=== PATIENT | male | born 1975 | race Caucasian/White ===

== ENCOUNTER 2018-11-08 16:00 | Inpatient (IN) | payer OTHER ==
[~2018-11-08] VITALS: Ht 188 cm; Wt 93.0 kg
--- NOTE | 2018-11-08 16:17 | NUR ---
ED Nurse Note: Pt came into the Er w/ complaints of abdominal pain since 0800 this morning. Pt is rating the pain a 9/10. Non radiating. Pt stated that he is nauseous and 1 episode of vomiting since this morning. Pt denies having diarrhea. Pt stated that he had bowel obstruction 20 years ago. Pt is A + O x4. Ambulatory. Skin warm to touch.
[2018-11-08 16:19] VITALS: BP 135/92
[2018-11-08] MEDS ORDERED: Metoclopramide 10mg/2ml Inj IVP ONE (16:30)
[2018-11-08] MEDS ORDERED: Isovue-300 100ml vial INJ PRN (16:30)
[2018-11-08 16:42] LABS: HEMATOCRIT 44.9 % (42.0-52.0); HEMOGLOBIN 14.4 G/DL (14.2-18.0); MEAN CORPUSCULAR VOLUME 77 FL (80-99); PLATELET COUNT 281 K/UL (150-450); RED BLOOD COUNT 5.81 M/UL (4.70-6.10); RED CELL DISTRIBUTION WIDTH 14.7 % (11.6-14.8); WHITE BLOOD COUNT 13.3 K/UL (4.8-10.8)
[2018-11-08 16:57] LABS: ANION GAP 10 mmol/L (5-15); BLOOD UREA NITROGEN 14 mg/dL (7-18); CALCIUM 8.6 MG/DL (8.5-10.1); CARBON DIOXIDE 26 MMOL/L (21-32); CHLORIDE 100 MMOL/L (98-107); CREATININE 1.4 MG/DL (0.55-1.30); SODIUM 136 MMOL/L (136-145)
[2018-11-08 17:06] LABS: ALANINE AMINOTRANSFERASE 124 U/L (12-78); ALBUMIN 3.9 G/DL (3.4-5.0); ALKALINE PHOSPHATASE 43 U/L (46-116); BILIRUBIN,TOTAL 0.5 MG/DL (0.2-1.0); CREATINE KINASE 776 U/L (26-308)
[2018-11-08 17:20] LABS: ASPARTATE AMINO TRANSFERASE 77 U/L (15-37)
[2018-11-08 17:23] LABS: APPEARANCE,URINE CLEAR; BILIRUBIN, URINE NEGATIVE (NEGATIVE); GLUCOSE, URINE (UA) NEGATIVE (NEGATIVE); KETONES,URINE 2+ (NEGATIVE); LEUKOCYTE ESTERASE ,URINE NEGATIVE (NEGATIVE); NITRITE,URINE NEGATIVE (NEGATIVE); PH,URINE 5 (4.5-8.0); PROTEIN,URINE 2+ (NEGATIVE); UROBILINOGEN,URINE NORMAL MG/DL (0.0-1.0)
[2018-11-08 17:28] LABS: COLOR,URINE YELLOW
--- NOTE | 2018-11-08 17:29 | NUR ---
ED Nurse Note: Pt went down to CT.
--- NOTE | 2018-11-08 17:49 | NUR ---
ED Nurse Note: Pt back from CT.
--- NOTE | 2018-11-08 18:03 | Emergency Room Report ---
History of Present Illness General Chief Complaint: Abdominal Pain Source: Patient Present Illness HPI This patient states that he woke up this morning with abdominal pain, nausea and vomiting. He states that 20 years ago he had a small bowel obstruction and this felt exactly the same way. He states that he hasn't had a bowel movement today. He states that he did try to drink this morning but vomited it back up. He has not tried to drink anything since. He denies fever or chills. He denies chest pain or shortness of breath. He denies recent illness. He has no other complaints. Allergies: Coded Allergies: No Known Allergies (Unverified , 11/08/18) Patient History Past Medical History: none, see triage record Past Surgical History: other - Open lap for SBOx20 years ago. Social History: Reports: alcohol use - occassional, drug use - THC; Denies: smoking Reviewed Nursing Documentation: PMH: Agreed; PSxH: Agreed Nursing Documentation-PMH Past Medical History: No Stated History Review of Systems All Other Systems: negative except mentioned in HPI Physical Exam Vital Signs Date Time Temp Pulse Resp B/P (MAP) Pulse Ox O2 Delivery O2 Flow Rate FiO2 11/08/18 16:03 97.5 73 18 157/95 100 Room Air 11/08/18 16:19 100 Sp02 EP Interpretation: reviewed, normal General Appearance: no apparent distress, alert, GCS 15, non-toxic Head: normocephalic, atraumatic Eyes: bilateral eye normal inspection, bilateral eye PERRL ENT: hearing grossly normal, normal pharynx, no angioedema, normal voice Neck: full range of motion, supple/symm/no masses Respiratory: chest non-tender, lungs clear, normal breath sounds, no respiratory distress, no retraction, no accessory muscle use, speaking full sentences Cardiovascular #1: regular rate, rhythm, no edema Gastrointestinal: normal bowel sounds, soft, non-distended, no guarding, no rebound, tenderness - TTP darren-umbilical and supra-pubic Rectal: deferred Musculoskeletal: back normal, gait/station normal, normal range of motion, non- tender Neurologic: alert, oriented x3, responsive, motor strength/tone normal, sensory intact, speech normal Psychiatric: judgement/insight normal, memory normal, mood/affect normal, no suicidal/homicidal ideation Skin: normal color, no rash, warm/dry, well hydrated Medical Decision Making Diagnostic Impression: Primary Impression: Partial small bowel obstruction ER Course This patient is found to have findings on CT that is concerning for partial small bowel obstruction versus gastrointestinal stasis. Given the patient's history of surgery at this location and a history of a small bowel instruction, I'm concerned that this could become a full small bowel instruction. An NG tube was placed to decompress the bowel and the patient is admitted for further evaluation and treatment by general surgery. Laboratory Tests Test 11/08/18 16:25 11/08/18 17:05 White Blood Count 13.3 K/UL (4.8-10.8) H Red Blood Count 5.81 M/UL (4.70-6.10) Hemoglobin 14.4 G/DL (14.2-18.0) Hematocrit 44.9 % (42.0-52.0) Mean Corpuscular Volume 77 FL (80-99) L Mean Corpuscular Hemoglobin 24.7 PG (27.0-31.0) L Mean Corpuscular Hemoglobin Concent 32.0 G/DL (32.0-36.0) Red Cell Distribution Width 14.7 % (11.6-14.8) Platelet Count 281 K/UL (150-450) Mean Platelet Volume 6.5 FL (6.5-10.1) Neutrophils (%) (Auto) % (45.0-75.0) Lymphocytes (%) (Auto) % (20.0-45.0) Monocytes (%) (Auto) % (1.0-10.0) Eosinophils (%) (Auto) % (0.0-3.0) Basophils (%) (Auto) % (0.0-2.0) Neutrophils % (Manual) Pending Lymphocytes % (Manual) Pending Platelet Estimate Pending Platelet Morphology Pending Prothrombin Time 10.8 SEC (9.30-11.50) Prothrombin Time INR 1.0 (0.9-1.1) PTT 24 SEC (23-33) Sodium Level 136 MMOL/L (136-145) Potassium Level 4.0 MMOL/L (3.5-5.1) Chloride Level 100 MMOL/L (98-107) Carbon Dioxide Level 26 MMOL/L (21-32) Anion Gap 10 mmol/L (5-15) Blood Urea Nitrogen 14 mg/dL (7-18) Creatinine 1.4 MG/DL (0.55-1.30) H Estimate Glomerular Filtration Rate 55.6 mL/min (>60) Glucose Level 115 MG/DL (74-106) H Calcium Level 8.6 MG/DL (8.5-10.1) Total Bilirubin 0.5 MG/DL (0.2-1.0) Aspartate Amino Transferase (AST) 77 U/L (15-37) H Alanine Aminotransferase (ALT) 124 U/L (12-78) H Alkaline Phosphatase 43 U/L (46-116) L Total Creatine Kinase 776 U/L (26-308) H Total Protein 7.9 G/DL (6.4-8.2) Albumin 3.9 G/DL (3.4-5.0) Globulin 4.0 g/dL Albumin/Globulin Ratio 1.0 (1.0-2.7) Lipase 390 U/L (73-393) Urine Color Yellow Urine Appearance Clear Urine pH 5 (4.5-8.0) Urine Specific [place] 1.030 (1.005-1.035) Urine Protein 2+ (NEGATIVE) H Urine Glucose (UA) Negative (NEGATIVE) Urine Ketones 2+ (NEGATIVE) H Urine Blood 2+ (NEGATIVE) H Urine Nitrite Negative (NEGATIVE) Urine Bilirubin Negative (NEGATIVE) Urine Urobilinogen Normal MG/DL (0.0-1.0) Urine Leukocyte Esterase Negative (NEGATIVE) Urine RBC 5-10 /HPF (0 - 0) H Urine WBC 0-2 /HPF (0 - 0) Urine Squamous Epithelial Cells Occasional /LPF Urine Bacteria Few /HPF (NONE) Urine Opiates Screen Negative (NEGATIVE) Urine Barbiturates Screen Negative (NEGATIVE) Phencyclidine (PCP) Screen Negative (NEGATIVE) Urine Amphetamines Screen Negative (NEGATIVE) Urine Benzodiazepines Screen Negative (NEGATIVE) Urine Cocaine Screen Negative (NEGATIVE) Urine Marijuana (THC) Screen Positive (NEGATIVE) H CT/MRI/US Diagnostic Results CT/MRI/US Diagnostic Results : Imaging Test Ordered: CT abd/pelvis Impression Previous bowel/colonic resection. Mural thickening involving the distal small bowel segment near the anastomosis sutures. Mildly distended and fecalized small bowel loops suggesting stasis or partial obstruction. Small amounts of fluid and appears show cavity. Appendix not identified. Last Vital Signs Date Time Temp Pulse Resp B/P (MAP) Pulse Ox O2 Delivery O2 Flow Rate FiO2 11/08/18 16:19 71 12 Room Air 100 11/08/18 16:19 97.6 135/92 100 Status: improved Disposition: ADMITTED INPATIENT Condition: Serious Scripts No Active Prescriptions or Reported Meds Jennifer Buckner DO Nov 08, 2018 18:03
[2018-11-08 18:16] VITALS: BP 161/91
--- NOTE | 2018-11-08 19:12 | NUR ---
HAND-OFF: Report given to ULISSES Smith.
--- NOTE | 2018-11-08 19:15 | NUR ---
ED Nurse Note: Recieved report from am nurse to resume care, pt in bed awake, alert and oriented x 4, pt here with c/o abdominal pain and being admitted for partial bowel obstructions, pt in bed on cardiac monitoirng, has patent iv line, spouse at bedside conversing, pt has pain at 7/10 but declines need for meds, will resume care as ordered and closely monitor.
[2018-11-08 20:00] VITALS: BP 149/82
[2018-11-08] MEDS ORDERED: Morphine Sulfate 4mg/ml Inj (IV USE ONLY) IVP ONE (21:30)
--- NOTE | 2018-11-08 21:35 | NUR ---
ED Nurse Note: Pt continues to rest in bed, awake and alert, pt decided to stay for admission, pt will recieve ngt and has room for admit, pt asking for pain meds stating pain level is increasing, pt medicated with morphine, meds effective, will continue to closely monitor and prepare for admission.
[2018-11-08] MEDS ORDERED: Metoclopramide 10mg/2ml Inj IVP PRN (21:45)
[2018-11-08] MEDS ORDERED: Mylanta II UD 30ml ORAL PRN (21:45)
[2018-11-08] MEDS ORDERED: Promethazine HCl 25 MG in NS 55 ML IV PRN (21:45)
[2018-11-08] MEDS ORDERED: Nitroglycerin Subl 0.4mg tab SL PRN (21:45)
[2018-11-08] MEDS ORDERED: Promethazine HCl 12.5 MG in NS 55 ML IV PRN (21:45)
[2018-11-08] MEDS ORDERED: Morphine Sulfate 2mg/ml Inj(IV/IM USE ONLY) IVP PRN (21:45)
[2018-11-08] MEDS ORDERED: Miralax 17gm pkt ORAL PRN (21:45)
[2018-11-08] MEDS ORDERED: LORazepam Inj 2mg/ml 1ml IV PRN (21:45)
[2018-11-08 22:00] VITALS: BP 139/81
--- NOTE | 2018-11-08 22:15 | NUR ---
ED Nurse Note: #16 [place] sump placed; checked with auscultation. Pt tolerated fairly well, relatively.
--- NOTE | 2018-11-08 22:35 | NUR ---
ED Nurse Note: Pt being taken to floor bed for admission, pt is in bed awake, alert and oriented x 4, denies pain, ngt in place intact in left nare, pt iv site intact also, v/s stable, no sob or labored breathing, pt spouse present, belongings list completed, pt being taken to unit via gurney with er-tech, nad noted during pt transport.
--- NOTE | 2018-11-08 23:00 | NUR ---
NURSE NOTES: Received patient from ER, awake, alert, oriented, spouse by bedside. NGT to low cont suction, patient is NPO except meds and ice chips. No acute distress noted, call light is within reach, bed is in low position, locked and alarm is on. Will continue to monitor for comfort.
[2018-11-08] MEDS: D5 1/2NS 1,000 ML IV SCH (23:21)
[2018-11-09] VITALS: BP 146/85
[2018-11-09 04:00] VITALS: BP 142/79
[2018-11-09 06:40] LABS: BASOPHILS % (AUTO) 0.7 % (0.0-2.0); EOSINOPHILS % (AUTO) 0.6 % (0.0-3.0); HEMATOCRIT 45.3 % (42.0-52.0); HEMOGLOBIN 14.4 G/DL (14.2-18.0); LYMPHOCYTES % (AUTO) 16.4 % (20.0-45.0); MEAN CORPUSCULAR VOLUME 78 FL (80-99); MONOCYTES % (AUTO) 7.2 % (1.0-10.0); NEUTROPHILS % (AUTO) 75.1 % (45.0-75.0); PLATELET COUNT 307 K/UL (150-450); RED BLOOD COUNT 5.83 M/UL (4.70-6.10); RED CELL DISTRIBUTION WIDTH 14.9 % (11.6-14.8); WHITE BLOOD COUNT 11.5 K/UL (4.8-10.8)
[2018-11-09 06:51] LABS: ALANINE AMINOTRANSFERASE 91 U/L (12-78); ALBUMIN/GLOBULIN RATIO 0.9 (1.0-2.7); ALKALINE PHOSPHATASE 36 U/L (46-116); AMYLASE 98 U/L (25-115); ANION GAP 9 mmol/L (5-15); ASPARTATE AMINO TRANSFERASE 49 U/L (15-37); BILIRUBIN,TOTAL 0.8 MG/DL (0.2-1.0); BLOOD UREA NITROGEN 13 mg/dL (7-18); CALCIUM 7.3 MG/DL (8.5-10.1); CARBON DIOXIDE 25 MMOL/L (21-32); CHLORIDE 102 MMOL/L (98-107); CREATININE 1.3 MG/DL (0.55-1.30); POTASSIUM 3.9 MMOL/L (3.5-5.1); SODIUM 136 MMOL/L (136-145)
--- NOTE | 2018-11-09 06:51 | NUR ---
HAND-OFF: Report given to Suleiman GTZ.
[2018-11-09 08:00] VITALS: BP 111/67
--- NOTE | 2018-11-09 08:00 | NUR ---
NURSE NOTES: Received report from Awa GTZ, pt a/a/o x4 laying in bed with no signs of distress or other issues at this time. pt has NGT in place to continues suction. pt is NPO except ice chips and meds. IV on the left FA gauge #20 running D5 1/2 NS at 75ml/hr. plan for abd Xray today. partner at bedside. call light within reach, bed in lowest position. side rales up x2. I will f/u as needed.
[2018-11-09] MEDS ORDERED: Pantoprazole Inj IV SCH (09:00)
[2018-11-09] MEDS ORDERED: Heparin 5000 units/ml inj SUBQ SCH (09:00)
--- NOTE | 2018-11-09 09:01 | NUR ---
RADIOLOGY DEPT., KUB (ABDOMEN) X-RAY COMPLETED.-P.DYE
--- NOTE | 2018-11-09 09:06 | Diagnostic Imaging Report ---
Clinical Indication: Abdominal pain, 9 out of 10 this morning. Prior history of bowel obstruction Technique: No oral contrast utilized, per emergency room physician request IV administration nonionic contrast. Venous phase spiral acquisition obtained through the abdomen and pelvis. Multiplanar reconstructions were generated. Total dose length product 950.85 mGycm. CTDIvol(s) 16.38 mGy. Dose reduction achieved using automated exposure control Comparison: none Findings: There is unusual postsurgical anatomy of the pelvis. There is an independent anastomosis into the rectum. It is unclear whether the anastomosis bowel is sigmoid or small bowel. There is marked segmental edema of the bowel proximal to the anastomosis. There is also a blind-ending segment with an end to side anastomosis attached to the distal anastomotic segment. The remainder of the distal small bowel anatomy is unclear. There are prominent fluid-filled small bowel loops in the right lower quadrant, as well as collapsed small bowel loops in the right lower quadrant. It is uncertain which bowel loops are more proximal of which are more distal. The jejunum appears unremarkable. There is a small amount of free intraperitoneal fluid. The distal esophagus, stomach, duodenum are unremarkable. The liver, gallbladder, bile ducts, pancreas, spleen, adrenals, kidneys are unremarkable. No retroperitoneal or mesenteric mass or adenopathy. No pelvic mass or adenopathy. The included lung bases are clear. Impression: Marked wall thickening of a segment of either distal small bowel or sigmoid colon, distended with colitis versus enteritis. Mixed dilated and collapsed small bowel loops in the right lower quadrant, could indicate partial small bowel obstruction, could also indicate ileus.. Free intraperitoneal fluid, likely related to the above This agrees with the preliminary interpretation provided overnight by [facility] teleradiology service. The CT scanner at [facility] is accredited by the [employer] and the scans are performed using protocols designed to limit radiation exposure to as low as reasonably achievable to attain images of sufficient resolution adequate for diagnostic evaluation.
--- NOTE | 2018-11-09 09:21 | Diagnostic Imaging Report ---
Indication: Abdominal pain, abnormal liver function tests, abnormal white blood cells Technique: Gomez-scale and duplex images of the upper abdomen were obtained. Doppler interrogation of the hepatic and pancreatic vessels Comparison: Reference made to abdomen pelvis CT 11/08/2018 Findings: Small amount of free intraperitoneal fluid is noted. Gallbladder is unremarkable, without stones, wall thickening, nor pericholecystic fluid. Sonographic Vogt's sign is negative. Common bile duct measures 5 mm in diameter. No intrahepatic biliary ductal dilatation. Liver demonstrates normal echogenicity, no focal abnormality. Portal vein and hepatic veins are patent. Pancreas is unremarkable. Spleen is unremarkable. Left kidney measures 12.6 cm in length. Right kidney measures 11.9 cm length. Both kidneys demonstrate normal echogenicity. There is no hydronephrosis. No focal abnormality . Abdominal aorta is partially obscured by bowel gas, visualized portions are non-aneurysmal . Impression: Small amount of free intraperitoneal fluid, also described on recent CT abdomen and pelvis Negative for gallstones or dilated bile ducts Note incomplete visualization of the abdominal aorta
--- NOTE | 2018-11-09 11:00 | GI Initial Consult Note ---
History of Present Illness General Date patient seen: Nov 09, 2018 Time patient seen: 10:56 Reason for Hospitalization: Abdominal Pain Referring physician: LULU MIR Reason for Consultation: Abdominal pain Present Illness HPI This patient states that he woke up this morning with abdominal pain, nausea and vomiting. He states that 20 years ago he had a small bowel obstruction and this felt exactly the same way. He states that he hasn't had a bowel movement today. He states that he did try to drink this morning but vomited it back up. He has not tried to drink anything since. He denies fever or chills. He denies chest pain or shortness of breath. He denies recent illness. He has no other complaints. GI consulted for abdominal pain. Patient seen, awake alert and oriented x4. Patient presented to the emergency room with abdominal pain. Abdominal pelvic CT was performed noted that the patient had marked wall thickening of a segment of the distal bowel which was suggested above enteritis. In addition there were mixed dilated and collapsed small bowel loops in the right lower quadrant which could have indicated a partial small bowel obstruction or ileus. The patient has history of a ulcerative colitis, status post total colectomy approximately 20 years ago. NGT currently to low intermittent suction with minimal output. The patient's abdomen is soft, nondistended, nontender. The patient reported to have multiple bowel movements this morning. Home Meds No Active Prescriptions or Reported Meds Allergies: Coded Allergies: No Known Allergies (Unverified , 11/08/18) Patient History History Provided By: Patient, Medical Record PMH Narrative Past Medical History: none, see triage record Past Surgical History: other - Open lap for SBOx20 years ago. Social History: Reports: alcohol use - occassional, drug use - THC; Denies: smoking Reviewed Nursing Documentation: PMH: Agreed; PSxH: Agreed Nursing Documentation-PM Past Medical History: No Stated History Social History: Denies: smoking, alcohol use, drug use, other Review of Systems All Other Systems: negative except mentioned in HPI Physical Exam Vital Signs Date Time Temp Pulse Resp B/P (MAP) Pulse Ox O2 Delivery O2 Flow Rate FiO2 11/08/18 16:03 97.5 73 18 157/95 100 Room Air 11/08/18 16:19 100 Sp02 EP Interpretation: reviewed, normal Labs Laboratory Tests Test 4/22/19 16:25 11/08/18 17:05 11/09/18 05:10 White Blood Count 13.3 K/UL (4.8-10.8) H 11.5 K/UL (4.8-10.8) H Red Blood Count 5.81 M/UL (4.70-6.10) 5.83 M/UL (4.70-6.10) Hemoglobin 14.4 G/DL (14.2-18.0) 14.4 G/DL (14.2-18.0) Hematocrit 44.9 % (42.0-52.0) 45.3 % (42.0-52.0) Mean Corpuscular Volume 77 FL (80-99) L 78 FL (80-99) L Mean Corpuscular Hemoglobin 24.7 PG (27.0-31.0) L 24.7 PG (27.0-31.0) L Mean Corpuscular Hemoglobin Concent 32.0 G/DL (32.0-36.0) 31.8 G/DL (32.0-36.0) L Red Cell Distribution Width 14.7 % (11.6-14.8) 14.9 % (11.6-14.8) H Platelet Count 281 K/UL (150-450) 307 K/UL (150-450) Mean Platelet Volume 6.5 FL (6.5-10.1) 7.1 FL (6.5-10.1) Neutrophils (%) (Auto) % (45.0-75.0) 75.1 % (45.0-75.0) H Lymphocytes (%) (Auto) % (20.0-45.0) 16.4 % (20.0-45.0) L Monocytes (%) (Auto) % (1.0-10.0) 7.2 % (1.0-10.0) Eosinophils (%) (Auto) % (0.0-3.0) 0.6 % (0.0-3.0) Basophils (%) (Auto) % (0.0-2.0) 0.7 % (0.0-2.0) Differential Total Cells Counted 100 Neutrophils % (Manual) 89 % (45-75) H Lymphocytes % (Manual) 7 % (20-45) L Monocytes % (Manual) 2 % (1-10) Eosinophils % (Manual) 0 % (0-3) Basophils % (Manual) 0 % (0-2) Band Neutrophils 2 % (0-8) Platelet Estimate Adequate Platelet Morphology Normal Anisocytosis 1+ Microcytosis 1+ Prothrombin Time 10.8 SEC (9.30-11.50) Prothromb Time International Ratio 1.0 (0.9-1.1) Activated Partial Thromboplast Time 24 SEC (23-33) 26 SEC (23-33) Sodium Level 136 MMOL/L (136-145) 136 MMOL/L (136-145) Potassium Level 4.0 MMOL/L (3.5-5.1) 3.9 MMOL/L (3.5-5.1) Chloride Level 100 MMOL/L (98-107) 102 MMOL/L (98-107) Carbon Dioxide Level 26 MMOL/L (21-32) 25 MMOL/L (21-32) Anion Gap 10 mmol/L (5-15) 9 mmol/L (5-15) Blood Urea Nitrogen 14 mg/dL (7-18) 13 mg/dL (7-18) Creatinine 1.4 MG/DL (0.55-1.30) H 1.3 MG/DL (0.55-1.30) Estimat Glomerular Filtration Rate 55.6 mL/min (>60) > 60 mL/min (>60) Glucose Level 115 MG/DL (74-106) H 118 MG/DL (74-106) H Calcium Level 8.6 MG/DL (8.5-10.1) 7.3 MG/DL (8.5-10.1) L Total Bilirubin 0.5 MG/DL (0.2-1.0) 0.8 MG/DL (0.2-1.0) Aspartate Amino Transf (AST/SGOT) 77 U/L (15-37) H 49 U/L (15-37) H Alanine Aminotransferase (ALT/SGPT) 124 U/L (12-78) H 91 U/L (12-78) H Alkaline Phosphatase 43 U/L (46-116) L 36 U/L (46-116) L Total Creatine Kinase 776 U/L (26-308) H Total Protein 7.9 G/DL (6.4-8.2) 6.5 G/DL (6.4-8.2) Albumin 3.9 G/DL (3.4-5.0) 3.0 G/DL (3.4-5.0) L Globulin 4.0 g/dL 3.5 g/dL Albumin/Globulin Ratio 1.0 (1.0-2.7) 0.9 (1.0-2.7) L Lipase 390 U/L (73-393) 385 U/L (73-393) Urine Color Yellow Urine Appearance Clear Urine pH 5 (4.5-8.0) Urine Specific [place] 1.030 (1.005-1.035) Urine Protein 2+ (NEGATIVE) H Urine Glucose (UA) Negative (NEGATIVE) Urine Ketones 2+ (NEGATIVE) H Urine Blood 2+ (NEGATIVE) H Urine Nitrite Negative (NEGATIVE) Urine Bilirubin Negative (NEGATIVE) Urine Urobilinogen Normal MG/DL (0.0-1.0) Urine Leukocyte Esterase Negative (NEGATIVE) Urine RBC 5-10 /HPF (0 - 0) H Urine WBC 0-2 /HPF (0 - 0) Urine Squamous Epithelial Cells Occasional /LPF Urine Bacteria Few /HPF (NONE) Urine Opiates Screen Negative (NEGATIVE) Urine Barbiturates Screen Negative (NEGATIVE) Phencyclidine (PCP) Screen Negative (NEGATIVE) Urine Amphetamines Screen Negative (NEGATIVE) Urine Benzodiazepines Screen Negative (NEGATIVE) Urine Cocaine Screen Negative (NEGATIVE) Urine Marijuana (THC) Screen Positive (NEGATIVE) H Amylase Level 98 U/L (25-115) General Appearance: well appearing, no apparent distress, alert Head: normocephalic EENT: PERRL/EOMI, normal ENT inspection Neck: supple Respiratory: normal breath sounds, no respiratory distress Cardiovascular: normal rate Gastrointestinal: normal inspection, non tender, soft, normal bowel sounds, non -distended Rectal: deferred Genitourinary: deferred Musculoskeletal: normal inspection, back normal Neurologic: normal inspection, alert, oriented x3, responsive Psychiatric: normal inspection, judgement/insight normal, memory normal Skin: normal inspection, normal color, no rash, warm/dry, palpation normal, well hydrated Lymphatic: normal inspection, no adenopathy Current Medications Current Medications Medications (Trade) Dose Ordered Sig/Ryan Route PRN Reason Start Time Stop Time Status Last Admin Dose Admin Acetaminophen (Tylenol) 650 mg Q4H PRN ORAL fever 11/08/18 21:45 12/08/18 21:44 Al Hydroxide/Mg Hydroxide (Mylanta II) 30 ml Q6H PRN ORAL dyspepsia 11/08/18 21:45 12/08/18 21:44 Dextrose (Dextrose 50%) 25 ml Q30M PRN IV Hypoglycemia 11/08/18 21:45 12/08/18 21:44 Dextrose (Dextrose 50%) 50 ml Q30M PRN IV Hypoglycemia 11/08/18 21:45 12/08/18 21:44 Dextrose/Sodium Chloride 1,000 ml @ 75 mls/hr [id number] IV 11/08/18 21:43 12/08/18 21:42 11/08/18 23:21 Diphenhydramine HCl (Benadryl) 25 mg Q6H PRN ORAL Itching/Pruritis 11/08/18 21:45 12/08/18 21:44 Heparin Sodium (Porcine) (Heparin 5000 units/ml) 5,000 units EVERY 12 HOURS SUBQ 11/09/18 09:00 12/09/18 08:59 11/09/18 09:03 Iopamidol (Isovue-300 100ml) 100 ml NOW PRN INJ Radiology Procedure 11/08/18 16:30 Lorazepam (Ativan 2mg/ml 1ml) 1 mg Q4H PRN IV agitation 11/08/18 21:45 11/15/18 21:44 Metoclopramide HCl (Reglan) 10 mg Q6H PRN IVP severe nausea 11/08/18 21:45 12/08/18 21:44 Morphine Sulfate (Morphine Sulfate) 2 mg Q4H PRN IVP severe Pain (Pain Scale 7-10) 11/08/18 21:45 11/15/18 21:44 11/09/18 01:57 Nitroglycerin (Ntg) 0.4 mg Q5M X 3 DOSES PRN SL Prn Chest Pain 11/08/18 21:45 12/08/18 21:44 Ondansetron HCl (Zofran) 4 mg Q6H PRN IVP Nausea & Vomiting 11/08/18 21:45 12/08/18 21:44 Pantoprazole (Protonix) 40 mg DAILY IV 11/09/18 09:00 12/09/18 08:59 11/09/18 09:02 Polyethylene Glycol (Miralax) 17 gm HSPRN PRN ORAL Constipation 11/08/18 21:45 12/08/18 21:44 Promethazine HCl (Phenergan) 25 mg Q6H PRN IM refractory nausea and vomiting 11/08/18 22:15 12/08/18 22:14 Temazepam (Restoril) 15 mg HSPRN PRN ORAL Insomnia 11/08/18 21:45 11/15/18 21:44 GI: Plan Problems: (1) H/O total colectomy (2) Partial small bowel obstruction (3) Enteritis Plan Continue n.p.o. plus IV fluids until seen by surgery Maintain NGT to low intermittent suction Most likely will remove NGT and begin clear liquid diet today Pain management PPI We will follow with additional recommendations Follow-up labs, hepatitis panel Discussed with Dr. Rubin. Thank you for this patient referral, we will follow. The patient was seen and examined at bedside and all new and available data was reviewed in the patients chart. I agree with the above findings, impression and plan. (Patient seen earlier today. Signature stamp does not reflect patient encounter time.). - MD Mary Gamez,[facility] [employer]OGRAM AND LETTER PASTER Nov 09, 2018 11:00
[2018-11-09] MEDS: D5 1/2NS 1,000 ML IV SCH (11:03)
[2018-11-09 12:00] VITALS: BP 122/76
--- NOTE | 2018-11-09 12:32 | Consultation ---
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 States pain felt as if he was obstructed and came to ED for evaluation. CT noted, labs as below, exam with mild tenderness. Surgery called to evaluate and assist with care. patient seen , chart reviewed, patient examined. states he feels better today. had multiple loose bowel movements today. NG tube in place with minimal output. Allergies: Coded Allergies: No Known Allergies (Unverified , 11/08/18) Medication History No Active Prescriptions or Reported Meds Patient History History Provided By: Patient, Medical Record, PMD Healthcare decision maker N Resuscitation status Full Code Advanced Directive on File No Past Medical/Surgical History Past Medical/Surgical History: (1) Partial small bowel obstruction (2) Enteritis Review of Systems Review of Symptoms General ROS: no weight loss or fever Psychological ROS: no depression or mood changes, no memory loss Ophthalmic ROS: no visual changes or eye irritation ENT ROS: no nasal congestion, hearing loss, dizziness Allergy and Immunology ROS: no allergic symptoms or urticaria Hematological and Lymphatic ROS: no swollen glands, unusual bleeding or bruising Endocrine ROS: no polyuria, polydipsia, weight changes, temperature intolerance Respiratory ROS: no cough, shortness of breath, or wheezing Cardiovascular ROS: no chest pain or dyspnea on exertion Gastrointestinal ROS: abdominal pain, no bright red blood in stool. Musculoskeletal ROS: no myalgias or arthralgias Neurological ROS: no TIA or stroke symptoms Dermatological ROS: no new or changing skin lesions, rashes or pruritis Physical Exam Physical Exam General appearance: alert, cooperative, no distress, appears stated age Head: Normocephalic, without obvious abnormality, atraumatic Eyes: conjunctivae/corneas clear. PERRL, EOM's intact. Fundi benign Throat: Lips, mucosa, and tongue normal. Teeth and gums normal Neck: supple, symmetrical, trachea midline, no adenopathy, thyroid: not enlarged, symmetric, no tenderness/mass/nodules, no carotid bruit and no JVD Lungs: clear to auscultation bilaterally Heart: regular rate and rhythm, S1, S2 normal, no murmur, click, rub or gallop Abdomen: soft, non-tender. Bowel sounds normal. No masses, no organomegaly Extremities: extremities normal, atraumatic, no cyanosis or edema Pulses: 2+ and symmetric Skin: Skin color, texture, turgor normal. No rashes or lesions Neurologic: Grossly normal Last 24 Hour Vital Signs Date Time Temp Pulse Resp B/P (MAP) Pulse Ox O2 Delivery O2 Flow Rate FiO2 11/09/18 08:00 98.0 82 18 111/67 (82) 11/09/18 04:00 98.1 97 21 142/79 (100) 11/09/18 00:00 98.3 91 20 146/85 (105) 11/08/18 23:52 Room Air 11/08/18 23:00 97.7 66 12 139/81 100 Room Air 100 64 11/08/18 22:05 97.7 11/08/18 22:00 97.7 64 12 139/81 100 Room Air 100 11/08/18 20:00 98.4 74 18 149/82 100 Room Air 100 11/08/18 18:16 97.7 66 12 161/91 100 Room Air 100 11/08/18 16:19 71 12 Room Air 100 11/08/18 16:19 97.6 71 12 135/92 100 Room Air 11/08/18 16:03 97.5 73 18 157/95 100 Room Air Intake and Output 11/08/18 11/09/18 18:59 06:59 Intake Total 2000 ml 150 ml Output Total 2 ml Balance 2000 ml 148 ml Intake IV Total 2000 ml 150 ml Output Urine Total 2 ml # Voids 1 Laboratory Tests Test 11/08/18 16:25 11/08/18 17:05 11/09/18 05:10 White Blood Count 13.3 K/UL (4.8-10.8) H 11.5 K/UL (4.8-10.8) H Red Blood Count 5.81 M/UL (4.70-6.10) 5.83 M/UL (4.70-6.10) Hemoglobin 14.4 G/DL (14.2-18.0) 14.4 G/DL (14.2-18.0) Hematocrit 44.9 % (42.0-52.0) 45.3 % (42.0-52.0) Mean Corpuscular Volume 77 FL (80-99) L 78 FL (80-99) L Mean Corpuscular Hemoglobin 24.7 PG (27.0-31.0) L 24.7 PG (27.0-31.0) L Mean Corpuscular Hemoglobin Concent 32.0 G/DL (32.0-36.0) 31.8 G/DL (32.0-36.0) L Red Cell Distribution Width 14.7 % (11.6-14.8) 14.9 % (11.6-14.8) H Platelet Count 281 K/UL (150-450) 307 K/UL (150-450) Mean Platelet Volume 6.5 FL (6.5-10.1) 7.1 FL (6.5-10.1) Neutrophils (%) (Auto) % (45.0-75.0) 75.1 % (45.0-75.0) H Lymphocytes (%) (Auto) % (20.0-45.0) 16.4 % (20.0-45.0) L Monocytes (%) (Auto) % (1.0-10.0) 7.2 % (1.0-10.0) Eosinophils (%) (Auto) % (0.0-3.0) 0.6 % (0.0-3.0) Basophils (%) (Auto) % (0.0-2.0) 0.7 % (0.0-2.0) Differential Total Cells Counted 100 Neutrophils % (Manual) 89 % (45-75) H Lymphocytes % (Manual) 7 % (20-45) L Monocytes % (Manual) 2 % (1-10) Eosinophils % (Manual) 0 % (0-3) Basophils % (Manual) 0 % (0-2) Band Neutrophils 2 % (0-8) Platelet Estimate Adequate Platelet Morphology Normal Anisocytosis 1+ Microcytosis 1+ Prothrombin Time 10.8 SEC (9.30-11.50) Prothromb Time International Ratio 1.0 (0.9-1.1) Activated Partial Thromboplast Time 24 SEC (23-33) 26 SEC (23-33) Sodium Level 136 MMOL/L (136-145) 136 MMOL/L (136-145) Potassium Level 4.0 MMOL/L (3.5-5.1) 3.9 MMOL/L (3.5-5.1) Chloride Level 100 MMOL/L (98-107) 102 MMOL/L (98-107) Carbon Dioxide Level 26 MMOL/L (21-32) 25 MMOL/L (21-32) Anion Gap 10 mmol/L (5-15) 9 mmol/L (5-15) Blood Urea Nitrogen 14 mg/dL (7-18) 13 mg/dL (7-18) Creatinine 1.4 MG/DL (0.55-1.30) H 1.3 MG/DL (0.55-1.30) Estimat Glomerular Filtration Rate 55.6 mL/min (>60) > 60 mL/min (>60) Glucose Level 115 MG/DL (74-106) H 118 MG/DL (74-106) H Calcium Level 8.6 MG/DL (8.5-10.1) 7.3 MG/DL (8.5-10.1) L Total Bilirubin 0.5 MG/DL (0.2-1.0) 0.8 MG/DL (0.2-1.0) Aspartate Amino Transf (AST/SGOT) 77 U/L (15-37) H 49 U/L (15-37) H Alanine Aminotransferase (ALT/SGPT) 124 U/L (12-78) H 91 U/L (12-78) H Alkaline Phosphatase 43 U/L (46-116) L 36 U/L (46-116) L Total Creatine Kinase 776 U/L (26-308) H Total Protein 7.9 G/DL (6.4-8.2) 6.5 G/DL (6.4-8.2) Albumin 3.9 G/DL (3.4-5.0) 3.0 G/DL (3.4-5.0) L Globulin 4.0 g/dL 3.5 g/dL Albumin/Globulin Ratio 1.0 (1.0-2.7) 0.9 (1.0-2.7) L Lipase 390 U/L (73-393) 385 U/L (73-393) Urine Color Yellow Urine Appearance Clear Urine pH 5 (4.5-8.0) Urine Specific [place] 1.030 (1.005-1.035) Urine Protein 2+ (NEGATIVE) H Urine Glucose (UA) Negative (NEGATIVE) Urine Ketones 2+ (NEGATIVE) H Urine Blood 2+ (NEGATIVE) H Urine Nitrite Negative (NEGATIVE) Urine Bilirubin Negative (NEGATIVE) Urine Urobilinogen Normal MG/DL (0.0-1.0) Urine Leukocyte Esterase Negative (NEGATIVE) Urine RBC 5-10 /HPF (0 - 0) H Urine WBC 0-2 /HPF (0 - 0) Urine Squamous Epithelial Cells Occasional /LPF Urine Bacteria Few /HPF (NONE) Urine Opiates Screen Negative (NEGATIVE) Urine Barbiturates Screen Negative (NEGATIVE) Phencyclidine (PCP) Screen Negative (NEGATIVE) Urine Amphetamines Screen Negative (NEGATIVE) Urine Benzodiazepines Screen Negative (NEGATIVE) Urine Cocaine Screen Negative (NEGATIVE) Urine Marijuana (THC) Screen Positive (NEGATIVE) H Amylase Level 98 U/L (25-115) Height (Feet): 6 Height (Inches): 2.00 Weight (Pounds): 205 Medications Current Medications Medications (Trade) Dose Ordered Sig/Ryan Route PRN Reason Start Time Stop Time Status Last Admin Dose Admin Acetaminophen (Tylenol) 650 mg Q4H PRN ORAL fever 11/08/18 21:45 12/08/18 21:44 Al Hydroxide/Mg Hydroxide (Mylanta II) 30 ml Q6H PRN ORAL dyspepsia 11/08/18 21:45 12/08/18 21:44 Dextrose (Dextrose 50%) 25 ml Q30M PRN IV Hypoglycemia 11/08/18 21:45 12/08/18 21:44 Dextrose (Dextrose 50%) 50 ml Q30M PRN IV Hypoglycemia 11/08/18 21:45 12/08/18 21:44 Dextrose/Sodium Chloride 1,000 ml @ 75 mls/hr [id number] IV 11/08/18 21:43 12/08/18 21:42 11/08/18 23:21 Diphenhydramine HCl (Benadryl) 25 mg Q6H PRN ORAL Itching/Pruritis 11/08/18 21:45 12/08/18 21:44 Heparin Sodium (Porcine) (Heparin 5000 units/ml) 5,000 units EVERY 12 HOURS SUBQ 11/09/18 09:00 12/09/18 08:59 11/09/18 09:03 Iopamidol (Isovue-300 100ml) 100 ml NOW PRN INJ Radiology Procedure 11/08/18 16:30 Lorazepam (Ativan 2mg/ml 1ml) 1 mg Q4H PRN IV agitation 11/08/18 21:45 11/15/18 21:44 Metoclopramide HCl (Reglan) 10 mg Q6H PRN IVP severe nausea 11/08/18 21:45 12/08/18 21:44 Morphine Sulfate (Morphine Sulfate) 2 mg Q4H PRN IVP severe Pain (Pain Scale 7-10) 11/08/18 21:45 11/15/18 21:44 11/09/18 01:57 Nitroglycerin (Ntg) 0.4 mg Q5M X 3 DOSES PRN SL Prn Chest Pain 11/08/18 21:45 12/08/18 21:44 Ondansetron HCl (Zofran) 4 mg Q6H PRN IVP Nausea & Vomiting 11/08/18 21:45 12/08/18 21:44 Pantoprazole (Protonix) 40 mg DAILY IV 11/09/18 09:00 12/09/18 08:59 11/09/18 09:02 Polyethylene Glycol (Miralax) 17 gm HSPRN PRN ORAL Constipation 11/08/18 21:45 12/08/18 21:44 Promethazine HCl (Phenergan) 25 mg Q6H PRN IM refractory nausea and vomiting 11/08/18 22:15 12/08/18 22:14 Temazepam (Restoril) 15 mg HSPRN PRN ORAL Insomnia 11/08/18 21:45 11/15/18 21:44 Assessment/Plan Problem List: (1) Partial small bowel obstruction Assessment & Plan: Partial SBO vs enteritis/pouchitis leukocytosis resolving pain improved HD stable exam benign today -upper GI with small bowel follow through ordered -ng tube removed -if small bowel series okay, can start diet and d/c planning will follow with recs thank you ICD Codes: K56.600 - Partial intestinal obstruction, unspecified as to cause SNOMED: [id number] Geovanny Banuelos Nov 09, 2018 12:32
--- NOTE | 2018-11-09 12:36 | Consultation ---
History of Present Illness General Date patient seen: Nov 09, 2018 Chief Complaint: Abdominal Pain Referring physician: LULU MIR Reason for Consultation: Abdominal pain Present Illness HPI 43 y/o M with hx of SBO s/p open lap ~20 yrs ago, UC s/p total colectomy ~20 yrs ago presents to ED on 11/08 with abd pain, nausea and vomiting. Symptoms felt exactly like when he had a SBO [address] showed finding suggesting enteritis. Denied f/c, CP, SOB. Allergies: Coded Allergies: No Known Allergies (Unverified , 11/08/18) Medication History No Active Prescriptions or Reported Meds Patient History Healthcare decision maker N Resuscitation status Full Code Advanced Directive on File No Patient History Narrative Pmhx: as above Shx: Reports: alcohol use - occassional, drug use - THC; Denies: smoking Fhx: non contributory Review of Systems All Other Systems: negative except mentioned in HPI Physical Exam Physical Exam Narrative General Appearance: well appearing, no apparent distress, alert Head: normocephalic EENT: PERRL/EOMI, normal ENT inspection Neck: supple Respiratory: normal breath sounds, no respiratory distress Cardiovascular: normal rate Gastrointestinal: normal inspection, non tender, soft, normal bowel sounds, non -distended Musculoskeletal: normal inspection, back normal Neurologic: normal inspection, alert, oriented x3, responsive Skin: normal inspection, normal color, no rash, warm/dry, palpation normal, well hydrated Last 24 Hour Vital Signs Date Time Temp Pulse Resp B/P (MAP) Pulse Ox O2 Delivery O2 Flow Rate FiO2 11/09/18 04:00 98.1 97 21 142/79 (100) 11/09/18 00:00 98.3 91 20 146/85 (105) 11/08/18 23:52 Room Air 11/08/18 23:00 97.7 66 12 139/81 100 Room Air 100 64 11/08/18 22:05 97.7 11/08/18 22:00 97.7 64 12 139/81 100 Room Air 100 11/08/18 20:00 98.4 74 18 149/82 100 Room Air 100 11/08/18 18:16 97.7 66 12 161/91 100 Room Air 100 11/08/18 16:19 71 12 Room Air 100 11/08/18 16:19 97.6 71 12 135/92 100 Room Air 11/08/18 16:03 97.5 73 18 157/95 100 Room Air Intake and Output 11/08/18 11/09/18 18:59 06:59 Intake Total 2000 ml 150 ml Output Total 2 ml Balance 2000 ml 148 ml Intake IV Total 2000 ml 150 ml Output Urine Total 2 ml # Voids 1 Laboratory Tests Test 11/08/18 16:25 11/08/18 17:05 11/09/18 05:10 White Blood Count 13.3 K/UL (4.8-10.8) H 11.5 K/UL (4.8-10.8) H Red Blood Count 5.81 M/UL (4.70-6.10) 5.83 M/UL (4.70-6.10) Hemoglobin 14.4 G/DL (14.2-18.0) 14.4 G/DL (14.2-18.0) Hematocrit 44.9 % (42.0-52.0) 45.3 % (42.0-52.0) Mean Corpuscular Volume 77 FL (80-99) L 78 FL (80-99) L Mean Corpuscular Hemoglobin 24.7 PG (27.0-31.0) L 24.7 PG (27.0-31.0) L Mean Corpuscular Hemoglobin Concent 32.0 G/DL (32.0-36.0) 31.8 G/DL (32.0-36.0) L Red Cell Distribution Width 14.7 % (11.6-14.8) 14.9 % (11.6-14.8) H Platelet Count 281 K/UL (150-450) 307 K/UL (150-450) Mean Platelet Volume 6.5 FL (6.5-10.1) 7.1 FL (6.5-10.1) Neutrophils (%) (Auto) % (45.0-75.0) 75.1 % (45.0-75.0) H Lymphocytes (%) (Auto) % (20.0-45.0) 16.4 % (20.0-45.0) L Monocytes (%) (Auto) % (1.0-10.0) 7.2 % (1.0-10.0) Eosinophils (%) (Auto) % (0.0-3.0) 0.6 % (0.0-3.0) Basophils (%) (Auto) % (0.0-2.0) 0.7 % (0.0-2.0) Differential Total Cells Counted 100 Neutrophils % (Manual) 89 % (45-75) H Lymphocytes % (Manual) 7 % (20-45) L Monocytes % (Manual) 2 % (1-10) Eosinophils % (Manual) 0 % (0-3) Basophils % (Manual) 0 % (0-2) Band Neutrophils 2 % (0-8) Platelet Estimate Adequate Platelet Morphology Normal Anisocytosis 1+ Microcytosis 1+ Prothrombin Time 10.8 SEC (9.30-11.50) Prothromb Time International Ratio 1.0 (0.9-1.1) Activated Partial Thromboplast Time 24 SEC (23-33) 26 SEC (23-33) Sodium Level 136 MMOL/L (136-145) 136 MMOL/L (136-145) Potassium Level 4.0 MMOL/L (3.5-5.1) 3.9 MMOL/L (3.5-5.1) Chloride Level 100 MMOL/L (98-107) 102 MMOL/L (98-107) Carbon Dioxide Level 26 MMOL/L (21-32) 25 MMOL/L (21-32) Anion Gap 10 mmol/L (5-15) 9 mmol/L (5-15) Blood Urea Nitrogen 14 mg/dL (7-18) 13 mg/dL (7-18) Creatinine 1.4 MG/DL (0.55-1.30) H 1.3 MG/DL (0.55-1.30) Estimat Glomerular Filtration Rate 55.6 mL/min (>60) > 60 mL/min (>60) Glucose Level 115 MG/DL (74-106) H 118 MG/DL (74-106) H Calcium Level 8.6 MG/DL (8.5-10.1) 7.3 MG/DL (8.5-10.1) L Total Bilirubin 0.5 MG/DL (0.2-1.0) 0.8 MG/DL (0.2-1.0) Aspartate Amino Transf (AST/SGOT) 77 U/L (15-37) H 49 U/L (15-37) H Alanine Aminotransferase (ALT/SGPT) 124 U/L (12-78) H 91 U/L (12-78) H Alkaline Phosphatase 43 U/L (46-116) L 36 U/L (46-116) L Total Creatine Kinase 776 U/L (26-308) H Total Protein 7.9 G/DL (6.4-8.2) 6.5 G/DL (6.4-8.2) Albumin 3.9 G/DL (3.4-5.0) 3.0 G/DL (3.4-5.0) L Globulin 4.0 g/dL 3.5 g/dL Albumin/Globulin Ratio 1.0 (1.0-2.7) 0.9 (1.0-2.7) L Lipase 390 U/L (73-393) 385 U/L (73-393) Urine Color Yellow Urine Appearance Clear Urine pH 5 (4.5-8.0) Urine Specific [place] 1.030 (1.005-1.035) Urine Protein 2+ (NEGATIVE) H Urine Glucose (UA) Negative (NEGATIVE) Urine Ketones 2+ (NEGATIVE) H Urine Blood 2+ (NEGATIVE) H Urine Nitrite Negative (NEGATIVE) Urine Bilirubin Negative (NEGATIVE) Urine Urobilinogen Normal MG/DL (0.0-1.0) Urine Leukocyte Esterase Negative (NEGATIVE) Urine RBC 5-10 /HPF (0 - 0) H Urine WBC 0-2 /HPF (0 - 0) Urine Squamous Epithelial Cells Occasional /LPF Urine Bacteria Few /HPF (NONE) Urine Opiates Screen Negative (NEGATIVE) Urine Barbiturates Screen Negative (NEGATIVE) Phencyclidine (PCP) Screen Negative (NEGATIVE) Urine Amphetamines Screen Negative (NEGATIVE) Urine Benzodiazepines Screen Negative (NEGATIVE) Urine Cocaine Screen Negative (NEGATIVE) Urine Marijuana (THC) Screen Positive (NEGATIVE) H Amylase Level 98 U/L (25-115) Height (Feet): 6 Height (Inches): 2.00 Weight (Pounds): 205 Medications Current Medications Medications (Trade) Dose Ordered Sig/Ryan Route PRN Reason Start Time Stop Time Status Last Admin Dose Admin Acetaminophen (Tylenol) 650 mg Q4H PRN ORAL fever 11/08/18 21:45 12/08/18 21:44 Al Hydroxide/Mg Hydroxide (Mylanta II) 30 ml Q6H PRN ORAL dyspepsia 11/08/18 21:45 12/08/18 21:44 Dextrose (Dextrose 50%) 25 ml Q30M PRN IV Hypoglycemia 11/08/18 21:45 12/08/18 21:44 Dextrose (Dextrose 50%) 50 ml Q30M PRN IV Hypoglycemia 11/08/18 21:45 12/08/18 21:44 Dextrose/Sodium Chloride 1,000 ml @ 75 mls/hr [id number] IV 11/08/18 21:43 12/08/18 21:42 11/08/18 23:21 Diphenhydramine HCl (Benadryl) 25 mg Q6H PRN ORAL Itching/Pruritis 11/08/18 21:45 12/08/18 21:44 Heparin Sodium (Porcine) (Heparin 5000 units/ml) 5,000 units EVERY 12 HOURS SUBQ 11/09/18 09:00 12/09/18 08:59 11/09/18 09:03 Iopamidol (Isovue-300 100ml) 100 ml NOW PRN INJ Radiology Procedure 11/08/18 16:30 Lorazepam (Ativan 2mg/ml 1ml) 1 mg Q4H PRN IV agitation 11/08/18 21:45 11/15/18 21:44 Metoclopramide HCl (Reglan) 10 mg Q6H PRN IVP severe nausea 11/08/18 21:45 12/08/18 21:44 Morphine Sulfate (Morphine Sulfate) 2 mg Q4H PRN IVP severe Pain (Pain Scale 7-10) 11/08/18 21:45 11/15/18 21:44 11/09/18 01:57 Nitroglycerin (Ntg) 0.4 mg Q5M X 3 DOSES PRN SL Prn Chest Pain 11/08/18 21:45 12/08/18 21:44 Ondansetron HCl (Zofran) 4 mg Q6H PRN IVP Nausea & Vomiting 11/08/18 21:45 12/08/18 21:44 Pantoprazole (Protonix) 40 mg DAILY IV 11/09/18 09:00 12/09/18 08:59 11/09/18 09:02 Polyethylene Glycol (Miralax) 17 gm HSPRN PRN ORAL Constipation 11/08/18 21:45 12/08/18 21:44 Promethazine HCl (Phenergan) 25 mg Q6H PRN IM refractory nausea and vomiting 11/08/18 22:15 12/08/18 22:14 Temazepam (Restoril) 15 mg HSPRN PRN ORAL Insomnia 11/08/18 21:45 11/15/18 21:44 Assessment/Plan Assessment: Abx: None Assessment: Abd pain, nausea, vomiting- enteritis/"pouchitis"- SBO vs ileus -CT abd/p: There is unusual postsurgical anatomy of the pelvis. There is an independent anastomosis into the rectum. It is unclear whether the anastomosis bowel is sigmoid or small bowel. There is marked segmental edema of the bowel proximal to the anastomosis. There is also a blind-ending segment with an end to side anastomosis attached to the distal anastomotic segment. The remainder of the distal small bowel anatomy is unclear. There are prominent fluid-filled small bowel loops in the right lower quadrant, as well as collapsed small bowel loops in the right lower quadrant. It is uncertain which bowel loops are more proximal of which are more distal. The jejunum appears unremarkable. There is a small amount of free intraperitoneal fluid. The distal esophagus, stomach, duodenum are unremarkable. Impression: Marked wall thickening of a segment of either distal small bowel or sigmoid colon, distended with colitis versus enteritis. Mixed dilated and collapsed small bowel loops in the right lower quadrant, could indicate partial small bowel obstruction, could also indicate ileus.. Free intraperitoneal fluid , likely related to the above Afebrile Mild leukocytosis; improving Elevated LFTs, improving -Abd uS: Small amount of free intraperitoneal fluid, also described on recent CT abdomen and pelvis. Negative for gallstones or dilated bile ductsNote incomplete visualization of the abdominal aorta -acute hep panel p SBO s/p open lap ~20 yrs ago UC s/p total colectomy ~20 yrs ago Plan: -Start PO Augmentin x 3-5 days in the setting of enteritis/pouchitis -f/u cx -Monitor CBC/CMP, temperatures -Bcx x2 if T >100.4 -Sx and GI f/u Thank you for this consultation. Will continue to follow along with you. Discussed with Mirella Ballard M.D. Nov 09, 2018 12:36
--- NOTE | 2018-11-09 12:40 | Consultation ---
History of Present Illness General Chief Complaint: Abdominal Pain Referring physician: LULU MIR Reason for Consultation: inpatient management Present Illness HPI 43 year old male with hx of Ulcerative colitis and total colectomy around 20 year ago presented to ER with CC of abdominal pain, nausea and vomiting. He hasn't had a bowel movement today. He states that he did try to drink this morning but vomited it back up. He denies fever or chills. His CT of abdomen showed an area of narrowing in distal ileum or sigmoid. Pt has been NPO for possible exploratory laparotomy. Allergies: Coded Allergies: No Known Allergies (Unverified , 11/08/18) Medication History No Active Prescriptions or Reported Meds Patient History Healthcare decision maker N Resuscitation status Full Code Advanced Directive on File No Past Medical/Surgical History Past Medical/Surgical History: (1) Ulcerative colitis (2) History of total colectomy Physical Exam General Appearance: WD/WN Lines, tubes and drains: peripheral HEENT: normocephalic, atraumatic Neck: non-tender, normal alignment Respiratory/Chest: chest wall non-tender, lungs clear Breasts: no masses Cardiovascular/Chest: normal peripheral pulses Abdomen: normal bowel sounds Genitourinary/Rectal: normal genital exam Extremities: normal range of motion Skin Exam: warm/dry Neurologic: warper creeler II-XII grossly normal Last 24 Hour Vital Signs Date Time Temp Pulse Resp B/P (MAP) Pulse Ox O2 Delivery O2 Flow Rate FiO2 11/09/18 08:00 98.0 82 18 111/67 (82) 11/09/18 04:00 98.1 97 21 142/79 (100) 11/09/18 00:00 98.3 91 20 146/85 (105) 11/08/18 23:52 Room Air 11/08/18 23:00 97.7 66 12 139/81 100 Room Air 100 64 11/08/18 22:05 97.7 11/08/18 22:00 97.7 64 12 139/81 100 Room Air 100 11/08/18 20:00 98.4 74 18 149/82 100 Room Air 100 11/08/18 18:16 97.7 66 12 161/91 100 Room Air 100 11/08/18 16:19 71 12 Room Air 100 11/08/18 16:19 97.6 71 12 135/92 100 Room Air 11/08/18 16:03 97.5 73 18 157/95 100 Room Air Intake and Output 11/08/18 11/09/18 18:59 06:59 Intake Total 2000 ml 150 ml Output Total 2 ml Balance 2000 ml 148 ml Intake IV Total 2000 ml 150 ml Output Urine Total 2 ml # Voids 1 Laboratory Tests Test 11/08/18 16:25 11/08/18 17:05 11/09/18 05:10 White Blood Count 13.3 K/UL (4.8-10.8) H 11.5 K/UL (4.8-10.8) H Red Blood Count 5.81 M/UL (4.70-6.10) 5.83 M/UL (4.70-6.10) Hemoglobin 14.4 G/DL (14.2-18.0) 14.4 G/DL (14.2-18.0) Hematocrit 44.9 % (42.0-52.0) 45.3 % (42.0-52.0) Mean Corpuscular Volume 77 FL (80-99) L 78 FL (80-99) L Mean Corpuscular Hemoglobin 24.7 PG (27.0-31.0) L 24.7 PG (27.0-31.0) L Mean Corpuscular Hemoglobin Concent 32.0 G/DL (32.0-36.0) 31.8 G/DL (32.0-36.0) L Red Cell Distribution Width 14.7 % (11.6-14.8) 14.9 % (11.6-14.8) H Platelet Count 281 K/UL (150-450) 307 K/UL (150-450) Mean Platelet Volume 6.5 FL (6.5-10.1) 7.1 FL (6.5-10.1) Neutrophils (%) (Auto) % (45.0-75.0) 75.1 % (45.0-75.0) H Lymphocytes (%) (Auto) % (20.0-45.0) 16.4 % (20.0-45.0) L Monocytes (%) (Auto) % (1.0-10.0) 7.2 % (1.0-10.0) Eosinophils (%) (Auto) % (0.0-3.0) 0.6 % (0.0-3.0) Basophils (%) (Auto) % (0.0-2.0) 0.7 % (0.0-2.0) Differential Total Cells Counted 100 Neutrophils % (Manual) 89 % (45-75) H Lymphocytes % (Manual) 7 % (20-45) L Monocytes % (Manual) 2 % (1-10) Eosinophils % (Manual) 0 % (0-3) Basophils % (Manual) 0 % (0-2) Band Neutrophils 2 % (0-8) Platelet Estimate Adequate Platelet Morphology Normal Anisocytosis 1+ Microcytosis 1+ Prothrombin Time 10.8 SEC (9.30-11.50) Prothromb Time International Ratio 1.0 (0.9-1.1) Activated Partial Thromboplast Time 24 SEC (23-33) 26 SEC (23-33) Sodium Level 136 MMOL/L (136-145) 136 MMOL/L (136-145) Potassium Level 4.0 MMOL/L (3.5-5.1) 3.9 MMOL/L (3.5-5.1) Chloride Level 100 MMOL/L (98-107) 102 MMOL/L (98-107) Carbon Dioxide Level 26 MMOL/L (21-32) 25 MMOL/L (21-32) Anion Gap 10 mmol/L (5-15) 9 mmol/L (5-15) Blood Urea Nitrogen 14 mg/dL (7-18) 13 mg/dL (7-18) Creatinine 1.4 MG/DL (0.55-1.30) H 1.3 MG/DL (0.55-1.30) Estimat Glomerular Filtration Rate 55.6 mL/min (>60) > 60 mL/min (>60) Glucose Level 115 MG/DL (74-106) H 118 MG/DL (74-106) H Calcium Level 8.6 MG/DL (8.5-10.1) 7.3 MG/DL (8.5-10.1) L Total Bilirubin 0.5 MG/DL (0.2-1.0) 0.8 MG/DL (0.2-1.0) Aspartate Amino Transf (AST/SGOT) 77 U/L (15-37) H 49 U/L (15-37) H Alanine Aminotransferase (ALT/SGPT) 124 U/L (12-78) H 91 U/L (12-78) H Alkaline Phosphatase 43 U/L (46-116) L 36 U/L (46-116) L Total Creatine Kinase 776 U/L (26-308) H Total Protein 7.9 G/DL (6.4-8.2) 6.5 G/DL (6.4-8.2) Albumin 3.9 G/DL (3.4-5.0) 3.0 G/DL (3.4-5.0) L Globulin 4.0 g/dL 3.5 g/dL Albumin/Globulin Ratio 1.0 (1.0-2.7) 0.9 (1.0-2.7) L Lipase 390 U/L (73-393) 385 U/L (73-393) Urine Color Yellow Urine Appearance Clear Urine pH 5 (4.5-8.0) Urine Specific [place] 1.030 (1.005-1.035) Urine Protein 2+ (NEGATIVE) H Urine Glucose (UA) Negative (NEGATIVE) Urine Ketones 2+ (NEGATIVE) H Urine Blood 2+ (NEGATIVE) H Urine Nitrite Negative (NEGATIVE) Urine Bilirubin Negative (NEGATIVE) Urine Urobilinogen Normal MG/DL (0.0-1.0) Urine Leukocyte Esterase Negative (NEGATIVE) Urine RBC 5-10 /HPF (0 - 0) H Urine WBC 0-2 /HPF (0 - 0) Urine Squamous Epithelial Cells Occasional /LPF Urine Bacteria Few /HPF (NONE) Urine Opiates Screen Negative (NEGATIVE) Urine Barbiturates Screen Negative (NEGATIVE) Phencyclidine (PCP) Screen Negative (NEGATIVE) Urine Amphetamines Screen Negative (NEGATIVE) Urine Benzodiazepines Screen Negative (NEGATIVE) Urine Cocaine Screen Negative (NEGATIVE) Urine Marijuana (THC) Screen Positive (NEGATIVE) H Amylase Level 98 U/L (25-115) Height (Feet): 6 Height (Inches): 2.00 Weight (Pounds): 205 Medications Current Medications Medications (Trade) Dose Ordered Sig/Ryan Route PRN Reason Start Time Stop Time Status Last Admin Dose Admin Acetaminophen (Tylenol) 650 mg Q4H PRN ORAL fever 11/08/18 21:45 12/08/18 21:44 Al Hydroxide/Mg Hydroxide (Mylanta II) 30 ml Q6H PRN ORAL dyspepsia 11/08/18 21:45 12/08/18 21:44 Dextrose (Dextrose 50%) 25 ml Q30M PRN IV Hypoglycemia 11/08/18 21:45 12/08/18 21:44 Dextrose (Dextrose 50%) 50 ml Q30M PRN IV Hypoglycemia 11/08/18 21:45 12/08/18 21:44 Dextrose/Sodium Chloride 1,000 ml @ 75 mls/hr [id number] IV 11/08/18 21:43 12/08/18 21:42 11/08/18 23:21 Diphenhydramine HCl (Benadryl) 25 mg Q6H PRN ORAL Itching/Pruritis 11/08/18 21:45 12/08/18 21:44 Heparin Sodium (Porcine) (Heparin 5000 units/ml) 5,000 units EVERY 12 HOURS SUBQ 11/09/18 09:00 12/09/18 08:59 11/09/18 09:03 Iopamidol (Isovue-300 100ml) 100 ml NOW PRN INJ Radiology Procedure 11/08/18 16:30 Lorazepam (Ativan 2mg/ml 1ml) 1 mg Q4H PRN IV agitation 11/08/18 21:45 11/15/18 21:44 Metoclopramide HCl (Reglan) 10 mg Q6H PRN IVP severe nausea 11/08/18 21:45 12/08/18 21:44 Morphine Sulfate (Morphine Sulfate) 2 mg Q4H PRN IVP severe Pain (Pain Scale 7-10) 11/08/18 21:45 11/15/18 21:44 11/09/18 01:57 Nitroglycerin (Ntg) 0.4 mg Q5M X 3 DOSES PRN SL Prn Chest Pain 11/08/18 21:45 12/08/18 21:44 Ondansetron HCl (Zofran) 4 mg Q6H PRN IVP Nausea & Vomiting 11/08/18 21:45 12/08/18 21:44 Pantoprazole (Protonix) 40 mg DAILY IV 11/09/18 09:00 12/09/18 08:59 11/09/18 09:02 Polyethylene Glycol (Miralax) 17 gm HSPRN PRN ORAL Constipation 11/08/18 21:45 12/08/18 21:44 Promethazine HCl (Phenergan) 25 mg Q6H PRN IM refractory nausea and vomiting 11/08/18 22:15 12/08/18 22:14 Temazepam (Restoril) 15 mg HSPRN PRN ORAL Insomnia 11/08/18 21:45 11/15/18 21:44 Assessment/Plan Problem List: (1) Partial small bowel obstruction ICD Codes: K56.600 - Partial intestinal obstruction, unspecified as to cause SNOMED: 433089336 (2) Enteritis ICD Codes: K52.9 - Noninfective gastroenteritis and colitis, unspecified SNOMED: 97671728 (3) Ulcerative colitis ICD Codes: K51.90 - Ulcerative colitis, unspecified, without complications SNOMED: 98350387 (4) History of total colectomy ICD Codes: Z90.49 - Acquired absence of other specified parts of digestive tract SNOMED: 08595542, 970757214 Diagnosis [place] I: NPO IV fluids Symptomatic treatment dvt prophylaxis check electrolytes Emil Manjarrez MD Nov 09, 2018 12:40
--- NOTE | 2018-11-09 12:54 | NUR ---
*-* INSURANCE *-* ALL AVAILABLE CLINICALS HAVE BEEN FAXED TO: [facility] JENN[facility]ER# [id number] FAX CLINICALS TO [phone] Addendum: 11/09/18 at 1458 by DANII SARMIENTO CM RADHA TREVINO (TURBINE SUBASSEMBLER) P:[phone] OPT. 9 EXT. 933
--- NOTE | 2018-11-09 13:00 | Diagnostic Imaging Report ---
Indication: Abdominal pain Technique: Supine view of the abdomen Comparison: Financial Advisor Trainee image from CT scan 11/08/2018 Findings: Mildly dilated small bowel loops are seen in the left upper quadrant. These appear somewhat more prominent than on the prior exam. No masses or unusual calcifications Impression: Mildly dilated small bowel loops. As described on previous CT scan, may be on the basis of ileus versus small bowel obstruction
--- NOTE | 2018-11-09 13:35 | NUR ---
CASE MANAGEMENT:REVIEW 43 YR OLD MALE TO ER CC: ABDOMINAL PAIN, NAUSEA AND VOMITING SI: PARTIAL SBO 97.5 73 18 157/95 100% ON RA WBC+13.3 IS: IV REGLAN 1L NS BOLUS CT ABD/PELVIS NPO NG TUBE : TO MED/SURG 3 EAST PLAN: SURGICAL CONSULT INTERQUAL CRITERIA MET
[2018-11-09] MEDS ORDERED: cefTRIAXone 1 GM in D5W 55 ML IVPB SCH (14:00)
[2018-11-09] MEDS ORDERED: metroNIDAZOLE 500mg tab ORAL SCH (14:00)
[2018-11-09] MEDS ORDERED: Augmentin 875mg Tab ORAL SCH ×2 (15:30→21:00)
[2018-11-09] MEDS ORDERED: AMOX TR-K CLV1 EAC2 ORAL (15:39)
[2018-11-09 16:00] VITALS: BP 131/81
--- NOTE | 2018-11-09 18:00 | NUR ---
NURSE NOTES: Received d/c order. discharge instructions and belongings list given to patient. Also given RX for Cipro 500mg PO BID x14 days. pt stated that he will go to his regular pharmacy to fill out RX. IV removed prior to d/c. pt left the floor ambulating (pt's request), partner at bedside and will provide transportation. I will f/u as needed.
--- NOTE | 2018-11-09 18:02 | History & Physical ---
History and Physical History & Physicial Dictated for Int Med-Dr Walker no. [id number]. Guillermo Diaz MD Nov 09, 2018 18:02
--- NOTE | 2018-11-09 23:15 | History and Physical Report ---
DATE OF ADMISSION: 11/08/2018 CHIEF COMPLAINT: This is a 43-year-old white male with history of ulcerative colitis, status post colectomy, presents with a chief complaint of nausea and vomiting. HISTORY OF PRESENT ILLNESS: The patient has a history of ulcerative colitis. The patient is status post total colectomy with J-pouch in his 20s. The patient states history of present illness began on 11/08/2018. The patient states he awoke with nausea and vomiting. The patient also had severe abdominal pain. The patient states he had a small bowel obstruction in the 20s. The patient states the pain feels exactly the same. The patient presented to [facility] emergency room. The patient is admitted for nausea, vomiting, and abdominal pain to rule out small bowel obstruction. REVIEW OF SYSTEMS: CONSTITUTIONAL: The patient denies weight loss or weight gain. The patient denies fevers or chills. HEENT: The patient denies ear or throat pain. The patient denies headache. CARDIOVASCULAR: The patient denies palpitations or chest pain. CHEST: The patient denies wheeze or shortness of breath. ABDOMINAL: The patient complains of nausea and vomiting as above. The patient complains of generalized abdominal pain as above. The patient denies diarrhea or constipation. GENITOURINARY: The patient denies dysuria or increased frequency of urination. NEUROMUSCULAR: The patient denies seizures or generalized weakness. PAST MEDICAL HISTORY: Significant for ulcerative colitis, status post colectomy. PAST SURGICAL HISTORY: Significant for colectomy with J-pouch at age 23. CURRENT MEDICATIONS: Finasteride 1 mg p.o. daily. ALLERGIES: No known drug allergies. SOCIAL HISTORY: The patient is a love and he has a partner. The patient denies tobacco use. The patient admits to rare alcohol use. PHYSICAL EXAMINATION: VITAL SIGNS: Temperature 97.5, respirations 18, pulse 73, and blood pressure 157/95. GENERAL: The patient is a well-developed and well-nourished white male, in no apparent distress. HEENT: Eyes, pupils are equal and responsive to light and accommodation. Extraocular movements are intact. NECK: Supple without lymphadenopathy. CHEST: Lungs are clear to auscultation bilaterally without wheezes or rales. CARDIOVASCULAR: Regular rhythm and rate. S1 and S2 are normal without murmurs, rubs, or gallops. ABDOMEN: Soft, distended with decreased bowel sounds. There is tenderness to palpation in all four quadrants. No evidence of hepatosplenomegaly. Currently, no rebound or guarding noted. EXTREMITIES: Negative for clubbing, cyanosis, or edema. RECTAL/GENITAL: Refused. NEUROLOGIC: Cranial nerves II through XII are grossly intact without focal deficits. Motor strength is 5/5 bilaterally. Deep tenon reflexes are 2+ plantar. LABORATORY STUDIES: WBC 13.3, hemoglobin 14.4, hematocrit 44.9, and platelets 281,000. Sodium 136, potassium 4.0, chloride 100, CO2 26, BUN 14, creatinine 1.4, and glucose 115. AST elevated at 77, ALT elevated at 124, and alkaline phosphatase elevated at 43. CK elevated at 776. Urinalysis demonstrated 2+ ketones, 2+ blood, and 5 to [address] scan of the abdomen and pelvis revealed marked wall thickening of the distal small bowel consistent with colitis versus enteritis. A KUB was suspicious for small bowel obstruction. ASSESSMENT: This is a 43-year-old white male. 1. Small bowel obstruction. 2. Ulcerative colitis. TREATMENT: 1. Small bowel obstruction. A General Surgery consultation has been obtained with Dr. Banuelos. The patient currently has an NG-tube in place. A Gastroenterology consultation is pending with Dr. Kailash Rubin. We will follow recommendations of Surgery and Gastroenterology. 2. Ulcerative colitis. As above, Gastroenterology consultation has been obtained with Dr. Kailash Rubin. Guillermo Diaz M.D. DR: MICHAEL JOB#: [id number] CC:
--- NOTE | 2018-11-10 10:48 | Discharge Summary ---
Discharge Summary Discharge Summary _ DATE OF ADMISSION: 11/08/2018 DATE OF DISCHARGE: 11/09/2018 DISCHARGED BY: Dr. Walker REASON FOR ADMISSION: 43 years old male with past medical history of ulcerative colitis , status post colectomy with J-pouch 20 years ago , presented to emergency department with complaint of abdominal pain , nausea and vomiting. Patient reported waking up in the morning with this symptoms. Patient reported one episode of vomiting after attempting to drink water . Patient denied any bowel movement at that day . Patient denied fever and chills. He denied chest pain or shortness of breath. He denied recent illnesses. On evaluation vital signs were stable. Laboratory work-up revealed leukocytosis with WBC 13.3, hemoglobin and hematocrit were stable. Stable electrolytes. BUN 14 , creatinine 1.4 Glucose 115. AST 77, ALT 124. Albumin 3.9. Urine toxicology screen was positive for marijuana. Urinalysis revealed +2 protein , no pyuria and few bacteria. CT of the abdomen and pelvis demonstrated marked wall thickening of a segment of either distal small bowel or sigmoid colon, distended with colitis versus enteritis. Mixed dilated and collapsed small bowel loops in the right lower quadrant, could indicate partial small bowel obstruction, could also indicate ileus. Free intraperitoneal fluid, likely related to the above Patient subsequently was admitted for further management CONSULTANTS: pulmonary Dr. Ogden ID specialist Dr. Harmon GI specialist surgery Dr. Banuelos [facility] HOSPITAL COURSE: Patient admitted to medical surgical floor. Patient was kept n.p.o. and started on IV hydration. Surgery and GI specialist closely followed . NG tube was inserted to low intermittent suction. Pain management was addressed. Patient started on PPI. Patient subsequently undergone abdominal ultrasound, which revealed no evidence of gallstones or dilated bile ducts. Small amount of free intraperitoneal fluid , also noted on recent CT scan , was seen. Surgeon seen and evaluated patient. Patient appeared hemodynamically stable. Abdominal exam was benign. Patient subsequently undergone upper GI series with small bowel follow-through, as ordered by surgeon, which revealed l good transit and no obstruction. NG tube was discontinued. Patient started on full liquid diet and was able to tolerate it. Patient felt much better. Abdominal pain controlled Infectious disease specialist followed. Patient started on oral Augmentin for 5 days in the setting of enteritis/ pouchitis. LFT trending down Patient clinically stabilized and was eager to go home. Patient was able to tolerate diet, no nausea, no vomiting. Abdominal pain resolved. Leukocytosis trending down -11.5, no fevers. Surgeon cleared patient for discharge. Follow-up with surgeon in 1 week as outpatient. Due to rapid unexpected improvement in patient condition , patient was discharged in 1 day. FINAL DIAGNOSES: Partial small bowel obstruction Enteritis Elevated LFT History of total colectomy Ulcerative colitis, status post total colectomy with J-pouch DISCHARGE MEDICATIONS: See Medication Reconciliation list. DISCHARGE INSTRUCTIONS: Patient was discharged home. Follow up with primary care provider in one week. I have been assigned to dictate discharge summary for this account. I was not involved in the patient's management. Cathleen Calderon NP Nov 10, 2018 10:48
--- NOTE | 2018-11-10 15:21 | Diagnostic Imaging Report ---
Indication: Abdominal pain, suspicion of bowel obstruction on recent abdomen pelvis CT. Evidence of enteritis recent abdomen pelvis CT. History of J-pouch Technique: Patient ingested oral water-soluble contrast. Serial overhead images were obtained for 90 minutes Comparison: Reference made to abdomen pelvis CT scan dated 11/08/2018 Findings: The grinder setup operator film demonstrates surgical dk in the pelvis. Distended bowel loops are seen in the mid lower abdomen and upper pelvis. Distended small bowel loops are also seen in the left upper quadrant. Ingested contrast traverses the small bowel quickly. The jejunum and ileum are unremarkable. There is distention of the distal ileum. There is also mucosal irregularity of the distal ileum just proximal to the J-pouch, corresponding to the area of mural edema described on recent CT scan. Contrast is definitively within the rectum and 1.5 hours and probably at one hour. Impression: No evidence of small bowel obstruction. Contrast traverses the entire GI tract in one hour Dilatation and mural thickening of the distal ileum just proximal to the surgical J-pouch. This is consistent with enteritis, nonspecific as regards etiology, reflects changes described on recent CT scan Findings reviewed in person with Dr. Banuelos at the completion of the exam
== END 2018-11-09 18:25 | disposition home or self-care (01) | DRG 389 ==
LOC: EMR 19:21 → 3E 19:32 → EDBEDREQ 21:01
DX: K56.600 Partial intestinal obstruction, unspecified as to cause (principal); K51.90 Ulcerative colitis, unspecified, without complications; K52.9 Noninfective gastroenteritis and colitis, unspecified; R79.89 Other specified abnormal findings of blood chemistry; Z90.49 Acquired absence of other specified parts of digestive tract
CPT/HCPCS: 36415; 74018; 74177; 74250; 76700; 80053; 80307; 81003; 82150; 82550; 83690; 85007; 85025; 85610; 85730; 96361; 96374; 96375; 99285; J2765